=== PATIENT | female | born 1955 | race African-American/Black ===

== ENCOUNTER 2018-06-16 14:54 | Emergency (ER) | payer MEDICAID ==
[~2018-06-16] VITALS: Ht 165.1 cm; Wt 118.0 kg
[~2018-06-16 14:54] MED LIST: ATENOLOL 100 MG
[2018-06-16 14:59] VITALS: BP 222/112
== END 2018-06-16 16:21 | disposition home or self-care (01) ==
LOC: ER 15:46
DX: L30.9 Dermatitis, unspecified (principal); I10 Essential (primary) hypertension; E11.9 Type 2 diabetes mellitus without complications; Z88.5 Allergy status to narcotic agent; Z91.040 Latex allergy status; Z98.890 Other specified postprocedural states
CPT/HCPCS: 99283